=== PATIENT | female | born 1975 | race Caucasian/White ===

== ENCOUNTER → 2018-10-26 | Outpatient (CLI) | payer OTHER ==
[~2018-10-26] MED LIST: CRYSELLE1 EACH PO; LEVOTHYROXINE0.05 MG PO
== END ==
LOC: M.CT 09:45
DX: Z13.6 Encounter for screening for cardiovascular disorders (principal); R91.1 Solitary pulmonary nodule

== ENCOUNTER → 2018-12-28 | Outpatient (CLI) | payer OTHER ==
--- NOTE | 2018-12-30 17:22 | EXE ---
[place] [address] STRESS ECHOCARDIOGRAM Name: AYDE BUTLER Room: [facility]#: [id number] Admission: 12/28/18 Attend Phys: Alis Sher Discharge: Date of : 71 Date of Service: 12/30/18 1721 Report #: [id number] THIS REPORT FOR: //name// APPROVED REPORT Study performed: 12/28/2018 15:19:06 Exam: Stress Echocardiogram Indication: Hypertension Patient Location: Out-Patient Stress Nurse: Kelsie Wong RN Supervising Physician: Bayron Vasquez MD Ht: 5 ft 3 in HR: 72 bpm BP: 129/73 mmHg Rhythm: NSR Medical History Medical History: HTN Medications: Losartan Allergies: No known drug allergies Cardiac Risk Factors: HTN, FHX of CAD Previous Cardiac Procedures: None Procedure The patient underwent an Exercise Stress Test using the Anil Protocol. Blood pressure, heart rate, and EKG were monitored. An Echocardiogram was performed by auto transmission technician in four stages in quad fashion. At peak stress, four selected images were obtained and placed side by side with resting images for comparison. Stress Test Details Stress Test: Exercise stress testing was performed using a Anil protocol. HR Resting HR: 72 bpm Max Heart Rate (APMHR): 175 bpm Max HR Achieved: 167 bpm Target HR (85% APMHR): 148 bpm % of APMHR: 95 Recovery HR: 96 bpm HR response to stress: Normal HR response to stress BP Resting BP: 129/73 mmHg Max BP: 151/86 mmHg Recovery BP: 135/89 [place] [address] STRESS ECHOCARDIOGRAM Name: AYDE BUTLER Room: [facility]#: [id number] Admission: 12/28/18 Attend Phys: Alis Sher Discharge: Date of : 71 Date of Service: 12/30/18 1721 Report #: [id number] BP response to stress: Normal blood pressure response to stress. ECG Resting ECG: Sinus Rhythm Stress ECG: Sinus Tachycardia ST Change: None Arrhythmia: None Recovery ECG: Sinus Rhythm Recovery ST Change: None Recovery Arrhythmia: None Clinical Reason for Termination: Completed protocol Exercise duration: 6 min 22 sec Highest Stage Achieved: Stage 3: 3.4 mph at 14% grade. Exercise capacity: 7.60 METs Patient tolerated standard Anil protocol exercise without significant cardiac symptoms. Exercise was stopped due to fatigue. Stress ECG Conclusion The baseline 12-lead EKG showed sinus rhythm without significant ST or T-wave abnormality. EKGs obtained during and post exercise showed sinus rhythm and sinus tachycardia with no significant ST or T wave changes when compared to baseline. There were no stress-induced arrhythmias. Pre-Stress Echo The resting Echocardiogram showed normal left ventricular contractility with an estimated Ejection Fraction of about 55-60%. Post-Stress Echo The stress Echocardiogram showed normal left ventricular contractility with an estimated Ejection Fraction of about >70%. Conclusion Clinical Response: Non-ischemic Exercise Capacity: Average Stress ECG Response: Non-ischemic Stress Echo Images: [place] [address] STRESS ECHOCARDIOGRAM Name: AYDE BUTLER Room: [facility]#: [id number] Admission: 12/28/18 Attend Phys: Alis Sher Discharge: Date of : 71 Date of Service: 12/30/181720 Report #: [id number] Other Information Study Quality: Good <ELECTRONICALLY SIGNED> By: Montez Fregoso MD, FACC 12/30/181720 20 20 Montez Fregoso MD, FACC /INF
== END ==
LOC: M.CRD 09-22 15:06 → M.CT 11-02 16:00 → M.CRD 11-08 15:00
DX: I10 Essential (primary) hypertension (principal); Z82.49 Family history of ischemic heart disease and other diseases of the circulatory system; Z79.899 Other long term (current) drug therapy